=== PATIENT | male | born 1990 | race Hispanic/Latino ===

== ENCOUNTER 2016-07-05 15:39 | Outpatient (CLI) | payer BC ==
[2016-07-05 17:44] LABS: #Basophils 0.1 thou/uL (0.0-0.2); #Eosinphils 0.1 thou/uL (0.0-0.7); #Lymphocytes 1.7 thou/uL (1.20-3.40); #Monocytes 0.4 thou/uL (0.11-0.59); #Neutrophils 3.5 thou/uL (1.40-6.50); %Basophils 1.1 % (0.0-1.0); %Eosinophils 1.7 % (0.0-10.0); %Lymphocytes 29.7 % (21.0-51.0); %Monocytes 6.7 % (0.0-10.0); Hematocrit 47.3 % (42.0-52.0); Mean Platelet Volume 9.3 fL (7.4-10.4); Red Blood Cell (RBC) Count 5.21 mill/uL (4.70-6.10); White Blood Cell (WBC) Count 5.8 thou/uL (4.8-10.8)
[2016-07-05 18:00] LABS: ALT (SGPT) 11 U/L (0-55); AST (SGOT) 17 U/L (5-34); Alkaline Phosphatase 65 U/L (40-150); Anion Gap 13 mmol/L (10-20); BUN (Urea Nitrogen) 16 mg/dL (8.9-20.6); Bilirubin, Total 0.4 mg/dL (0.2-1.2); Calc. Creatinine Clearance 0 mL/min (70-130); Calcium 9.5 mg/dL (7.8-10.44); Carbon Dioxide 27 mmol/L (22-29); Chloride 104 mmol/L (98-107); Estimated GFR-MDRD Greater than 90; Globulin 2.8 g/dL (2.4-3.5); LDL Cholesterol, Calculated 71 mg/dL; Protein, Total 7.6 g/dL (6.0-8.3)
[2016-07-05 18:04] LABS: Hemoglobin A1c 4.8 % (4.0-6.0)
== END 2016-07-05 15:40 | disposition home or self-care (01) ==
LOC: NAV LAB 15:39
PROVIDERS: ATTEND Psychiatry & Neurology Psychiatry
DX: F25.9 Schizoaffective disorder, unspecified (principal); Z79.899 Other long term (current) drug therapy
CPT/HCPCS: 80053; 80061; 83036; 85025